=== PATIENT | female | born 1980 | race Caucasian/White ===

== ENCOUNTER 2016-07-03 15:28 | Emergency (ER) | payer OTHER ==
[~2016-07-03] VITALS: Ht 157.5 cm; Wt 56.7 kg
[~2016-07-03 15:28] MED LIST: MOTR200T44 PO; STUACAP PO; TYLE167L PO
[2016-07-03] MEDS ORDERED: ASPIRIN 81 MG CHEW TABLET PO ONE (16:15)
--- NOTE | 2016-07-03 16:37 | REP ---
Chest two views HISTORY: Chest pain Comparison: 10/30/2011 The lungs are clear. The heart is normal in size. The pulmonary vasculature is normal in appearance. The bony structure is intact. IMPRESSION: No acute disease. Signed by Heath Morris MD 07/03/2016 04:29 P
[2016-07-03 16:57] LABS: BASO % 0.6 % (0.0-1.0); EOS # 0.2 K/mm3 (0.0-0.50); EOS % 3.1 % (0.0-3.0); LARGE UNSTAINED CELL # 0.2 K/mm3 (0.0-0.4); LARGE UNSTAINED CELL % 2.2 % (0.0-4.0); LYMPH # 2.2 K/mm3 (1.5-4.5); LYMPH % 27.5 % (24.0-44.0); MEAN CORPUSCULAR HEMOGLOBIN 32.9 pg (27.0-33.0); MONO # 0.4 K/mm3 (0.0-0.8); MONO % 4.7 % (0.0-5.0); NEUTROPHILS # 4.9 K/mm3 (1.8-7.7); NEUTROPHILS % 61.9 % (36.0-66.0); PLATELET COUNT, AUTOMATED 354 k/mm3 (150-450); RED CELL DISTRIBUTION WIDTH 11.6 % (11.5-14.5); WHITE BLOOD COUNT 7.8 K/mm3 (4.0-10.0)
[2016-07-03 17:05] LABS: INR 0.87
[2016-07-03 17:16] LABS: ALBUMIN 4.3 GM/DL (3.2-5.2); ALBUMIN/GLOBULIN RATIO 1.19 (1.00-1.93); ALKALINE PHOSPHATASE 52 U/L (45-117); ALT/SGPT 19 U/L (12-78); ANION GAP 6 MEQ/L (8-16); AST/SGOT 14 U/L (15-37); BILIRUBIN,DIRECT < 0.1 MG/DL (0.0-0.2); BILIRUBIN,TOTAL 0.3 MG/DL (0.2-1.0); BLOOD UREA NITROGEN 13 MG/DL (7-18); CALCIUM LEVEL 8.8 MG/DL (8.5-10.1); CARBON DIOXIDE LEVEL 27 MEQ/L (21-32); CHLORIDE LEVEL 105 MEQ/L (98-107); CREATININE FOR GFR 0.67 MG/DL (0.55-1.02); GLOMERULAR FILTRATION RATE > 60.0 (>60); GLUCOSE, FASTING 84 MG/DL (70-105); POTASSIUM SERUM 4.2 MEQ/L (3.5-5.1); SODIUM LEVEL 138 MEQ/L (136-145); TOTAL PROTEIN 7.9 GM/DL (6.4-8.2)
[2016-07-03 17:42] VITALS: BP 132/75
--- NOTE | 2016-07-04 08:25 | ECGEPIP ---
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
== END 2016-07-03 17:50 | disposition home or self-care (01) ==
LOC: M ED 17:02
DX: R07.89 Other chest pain (principal); Z87.891 Personal history of nicotine dependence

== ENCOUNTER → 2016-09-14 | Outpatient (CLI) | payer OTHER ==
[2016-09-14 18:57] LABS: BASO % 0.6 % (0.0-1.0); EOS # 0.4 K/mm3 (0.0-0.50); EOS % 6.6 % (0.0-3.0); LARGE UNSTAINED CELL # 0.2 K/mm3 (0.0-0.4); LARGE UNSTAINED CELL % 2.9 % (0.0-4.0); LYMPH # 2.1 K/mm3 (1.5-4.5); LYMPH % 33.7 % (24.0-44.0); MEAN CORPUSCULAR HEMOGLOBIN 32.9 pg (27.0-33.0); MEAN CORPUSCULAR VOLUME 99.7 fl (80.0-96.0); MONO # 0.4 K/mm3 (0.0-0.8); MONO % 7.2 % (0.0-5.0); NEUTROPHILS # 2.8 K/mm3 (1.8-7.7); NEUTROPHILS % 48.9 % (36.0-66.0); PLATELET COUNT, AUTOMATED 317 k/mm3 (150-450); WHITE BLOOD COUNT 5.8 K/mm3 (4.0-10.0)
[2016-09-14 19:06] LABS: ALBUMIN 4.1 GM/DL (3.2-5.2); ALBUMIN/GLOBULIN RATIO 1.11 (1.00-1.93); ALKALINE PHOSPHATASE 51 U/L (45-117); ALT/SGPT 23 U/L (12-78); ANION GAP 8 MEQ/L (8-16); AST/SGOT 13 U/L (15-37); BILIRUBIN,TOTAL 0.4 MG/DL (0.2-1.0); BLOOD UREA NITROGEN 11 MG/DL (7-18); CALCIUM LEVEL 9.5 MG/DL (8.5-10.1); CARBON DIOXIDE LEVEL 26 MEQ/L (21-32); CHLORIDE LEVEL 105 MEQ/L (98-107); CREATININE FOR GFR 0.79 MG/DL (0.55-1.02); GLOMERULAR FILTRATION RATE > 60.0 (>60); GLUCOSE, FASTING 91 MG/DL (70-105); POTASSIUM SERUM 4.4 MEQ/L (3.5-5.1); SODIUM LEVEL 139 MEQ/L (136-145); TOTAL PROTEIN 7.8 GM/DL (6.4-8.2)
== END ==
LOC: M SMT 11:23
PROVIDERS: ATTEND Physician Assistant Medical
DX: K62.5 Hemorrhage of anus and rectum (principal)

== ENCOUNTER → 2017-08-22 | Outpatient (REF) | payer OTHER ==
[2017-08-22 17:43] LABS: HEMATOCRIT 34.2 % (36.0-47.0); HEMOGLOBIN 11.3 g/dl (12.0-15.5); MEAN CORPUSCULAR HEMOGLOBIN 31.8 pg (27.0-33.0); MEAN CORPUSCULAR VOLUME 96.3 fl (80.0-96.0); PLATELET COUNT, AUTOMATED 311 10^3/uL (150-450); RED BLOOD COUNT 3.55 10^6/uL (4.00-5.40); RED CELL DISTRIBUTION WIDTH 11.9 % (11.5-14.5); WHITE BLOOD COUNT 6.7 10^3/uL (4.0-10.0)
[2017-08-22 18:19] LABS: RUBELLA IgG QUALITATIVE IMMUNE (IMMUNE)
[2017-08-22 18:20] LABS: HEPATITIS B SURFACE ANTIGEN NEGATIVE (NEGATIVE)
[2017-08-22 18:47] LABS: HEPATITIS C VIRUS ABY INDEX 0.1 INDEX (<0.8)
[2017-08-22 18:48] LABS: HIV 1&2 SCREEN CENTAUR NEGATIVE (NEGATIVE)
[2017-08-22 21:46] LABS: HCG, SERUM QUANTITATIVE 28267 MIU/ML
== END ==
LOC: M LAB REF 16:46
DX: O36.80X0 Pregnancy with inconclusive fetal viability, not applicable or unspecified (principal)

== ENCOUNTER → 2017-08-30 | Outpatient (REF) | payer OTHER | LOC: M LAB REF 12:27 | DX: J02.9 Acute pharyngitis, unspecified (principal) ==

== ENCOUNTER → 2017-11-29 | Outpatient (REF) | payer OTHER | LOC: M LAB REF 09:45 | DX: J02.9 Acute pharyngitis, unspecified (principal) ==

== ENCOUNTER → 2018-01-23 | Outpatient (CLI) | payer OTHER ==
[2018-01-23 11:02] LABS: HEMATOCRIT 29.2 % (36.0-47.0); HEMOGLOBIN 9.5 g/dl (12.0-15.5); MEAN CORPUSCULAR HEMOGLOBIN 32.5 pg (27.0-33.0); MEAN CORPUSCULAR HGB CONC 32.5 g/dl (32.0-36.5); PLATELET COUNT, AUTOMATED 273 10^3/uL (150-450); RED BLOOD COUNT 2.92 10^6/uL (4.00-5.40); RED CELL DISTRIBUTION WIDTH 12.7 % (11.5-14.5); WHITE BLOOD COUNT 11.4 10^3/uL (4.0-10.0)
[2018-01-23 11:32] LABS: GLUCOSE CHALLENGE TEST 1 HOUR 143 MG/DL (LESS THAN 140)
== END ==
LOC: M LAB 09:29
DX: O09.212 Supervision of pregnancy with history of pre-term labor, second trimester (principal); Z3A.00 Weeks of gestation of pregnancy not specified
CPT/HCPCS: 82950

== ENCOUNTER → 2018-01-30 | Outpatient (CLI) | payer OTHER ==
[2018-01-30 08:00] LABS: GLUCOSE, FASTING 85 MG/DL (LESS THAN 95)
[2018-01-30 08:53] LABS: 1 HR GLUCOSE 110 MG/DL (LESS THAN 180)
[2018-01-30 11:03] LABS: 2 HR GLUCOSE 88 MG/DL (LESS THAN 155)
[2018-01-30 11:04] LABS: 3 HR GLUCOSE 55 MG/DL (LESS THAN 140)
== END ==
LOC: M LAB 06:58
DX: O99.89 Other specified diseases and conditions complicating pregnancy, childbirth and the puerperium (principal); R73.02 Impaired glucose tolerance (oral); Z3A.29 29 weeks gestation of pregnancy
CPT/HCPCS: 82951

== ENCOUNTER → 2018-03-13 | Outpatient (REF) | payer OTHER | LOC: M LAB REF 17:18 | PROVIDERS: ATTEND Obstetrics & Gynecology | DX: O09.213 Supervision of pregnancy with history of pre-term labor, third trimester (principal) ==

== ENCOUNTER 2018-04-05 14:51 | Inpatient (IN) | payer OTHER ==
[~2018-04-05] VITALS: Ht 5.1 cm; Wt 75.7 kg
[2018-04-05] VITALS (8 sets, daily range): BP systolic 104–145; BP diastolic 56–76
[2018-04-05] MEDS ORDERED: TUMS500C PO (15:10)
[2018-04-05] MEDS ORDERED: PREN1TAB11 PO (15:10)
[2018-04-05] MEDS ORDERED: LACTATED RINGER'S 1000 ML IV STA (15:36)
[2018-04-05 16:09] LABS: HEMATOCRIT 34.3 % (36.0-47.0); HEMOGLOBIN 11.3 g/dl (12.0-15.5); MEAN CORPUSCULAR HEMOGLOBIN 32.4 pg (27.0-33.0); MEAN CORPUSCULAR HGB CONC 32.9 g/dl (32.0-36.5); MEAN CORPUSCULAR VOLUME 98.3 fl (80.0-96.0); PLATELET COUNT, AUTOMATED 278 10^3/uL (150-450); RED BLOOD COUNT 3.49 10^6/uL (4.00-5.40)
[2018-04-05] MEDS ORDERED: LR 1,000 ML IV SCH (16:30)
[2018-04-05] MEDS ORDERED: OXYTOCIN 30 UNITS IN 0.9% NaCl 500ML IV BAG (J2590) As Ordered ONE (17:04)
[2018-04-05] MEDS ORDERED: OXYTOCIN DRIP 30 UNITS in APPROPRIATE DILUENT 1 EA IV SCH ×2 (17:15→18:26)
[2018-04-05] MEDS ORDERED: FENTANYL/ROPIVACAINE/NACL BAG 100 ML EPIDURAL SCH (18:00)
[2018-04-05] MEDS ORDERED: REFRIGERATOR IV KEYS XX PRN (18:00)
[2018-04-05] MEDS ORDERED: ACETAMINOPHEN 500 MG TAB PO PRN (18:30)
[2018-04-05] MEDS ORDERED: DOCUSATE SODIUM 100 MG CAP PO PRN (18:30)
[2018-04-05] MEDS ORDERED: METHYLERGONOVINE MALEATE 0.2 MG TAB PO PRN (18:30)
[2018-04-05] MEDS ORDERED: DIBUCAINE 1% OINTMENT 30GM TOP PRN (18:30)
[2018-04-05] MEDS ORDERED: MEASLES,MUMPS,RUBELLA VACCINE INJ (MMR-II) (90707) SC SCH (18:30)
[2018-04-05] MEDS ORDERED: RHOGAM 300 MCG (1500 IU) INJ (J2790) IM SCH (18:30)
--- NOTE | 2018-04-05 18:38 | DNPDOC ---
[facility] Delivery Note Delivery Note DATE OF DELIVERY: 04/05/18 PREDELIVERY DIAGNOSIS: 38+6/7 weeks' gestation and labor. POST DELIVERY DIAGNOSIS: Delivered. PROCEDURE: Spontaneous vaginal delivery. PROVIDER: Christina Arndt CNM ANESTHESIA: None. ESTIMATED BLOOD LOSS: 100 mL. FINDINGS: 7 pound 0 ounce, 3170gm male , Score 9/9, no nuchal cord. DELIVERY SUMMARY: Patient is a 38-year-old 3 now para 2-1-0-3 patient of [facility] who was admitted to labor and delivery for active labor. AROM clear fluid performed by Dr Arriaga @ 1659. She progressed rapidly. FD with spontaneous be aring down efforts @ 1810. I was requested to attend the delivery. Viable male child delivered MARLENI compound with anterior Left arm @ 1813. Spontaneous respirations, transitioned on maternal abdomen. Venous cord gas obtained, results pending. Cord doubly clamped and cut by FOB under my direction once pulsations ceased. Apgars 9/9. Placenta hearn, intact with 3v cord @ 1819. Fundus firmed with massage and IV pitocin bolus. EBL 100ml. Cervix vagina and perineum inspected, noted to be intact. Sponge, sharp and instrument count correct. Dr Arriaga aware of pt status. Christina Arndt CNM Apr 05, 2018 18:38
[2018-04-05 18:40] LABS: CORD GAS ABE V -1.2; CORD GAS HCO3 V 19.8 MEQ/L; CORD GAS PCO2 V 25.4 mmHg; CORD GAS PH V 7.51 UNITS; CORD GAS PO2 V 43.5 mmHg; CORD GAS SBC V 23.3 MEQ/L; CORD GAS TCO2 V 20.6 MEQ/L
--- NOTE | 2018-04-05 18:41 | HPE ---
DATE OF ADMISSION: 04/05/2018 Tess is a 38-year-old female, 3, para 1-1-0-2 with an estimated date of confinement (EDC) of 04/13/2018, estimated gestational age (EGA) 38-6/7 weeks gestation who had presented to the office with complaint of pelvic pressure or contractions. Upon evaluation she was found to be 4 cm and 70% effaced, fetus at -2 station. She was then sent home to monitor labor. She called back with increased contractions and worsening pressure. Upon evaluation in labor and delivery, she was found to be 4-5 cm dilated, 80% effaced. At this point, a decision was made for admission. Her record reviewed, which was essentially unremarkable. She had her first delivery at 33 weeks and a full-term live at 39 weeks. LABORATORY: Blood type is O positive, rubella immune, hepatitis negative, HIV negative, GC/ chlamydia negative. One-hour sugar testing was within normal limits. GBS was negative. PAST MEDICAL HISTORY: Denies. PAST SURGICAL HISTORY: 1. Laparoscopy. 2. Hawks tooth extraction. SOCIAL HISTORY: She is . Denies any alcohol or drug use. REVIEW OF SYSTEMS: Unremarkable. FAMILY HISTORY: Significant for diabetes, heart disease, and bladder cancer. MEDICATIONS: vitamin ALLERGIES: No known drug allergy. PHYSICAL EXAMINATION: Normal-appearing female in no acute distress. Abdomen: Soft, nontender, nondistended. Extremities: No clubbing, cyanosis or edema. Vaginal exam: 4-5 cm dilated, 80% effaced, fetus at -2 station, vertex position. Tracing reviewed: Category 1 tracing. ASSESSMENT: Intrauterine at 38-6/7 weeks gestation in labor. PLAN: Admit to labor and delivery. Routine labs sent. Pain management discussed. The patient opted for an epidural. Will continue to monitor. Anticipate delivery.
[2018-04-05] MEDS: IBUPROFEN 800 MG TAB PO PRN (18:42)
[2018-04-06] MEDS: IBUPROFEN 800 MG TAB PO PRN ×2 (03:18→19:25)
[2018-04-06 06:11] VITALS: BP 103/51
[2018-04-06] MEDS: PRENATAL VITAMINS CHEWABLE TABLET PO SCH (07:46)
[2018-04-06 18:00] VITALS: BP 116/63
[2018-04-07 05:51] VITALS: BP 116/59
[2018-04-07] MEDS: PRENATAL VITAMINS CHEWABLE TABLET PO SCH (10:17)
[2018-04-07] MEDS ORDERED: MAPA500T2 PO (10:18)
[2018-04-07] MEDS ORDERED: IBUP-1114 PO (10:20)
[2018-04-07] MEDS ORDERED: COLA100C5 PO (10:21)
[2018-04-07] MEDS: IBUPROFEN 800 MG TAB PO PRN (10:22)
== END 2018-04-07 12:45 | disposition home or self-care (01) | DRG 807 ==
LOC: M LDI 14:51 → M OBS 20:39
PROVIDERS: ADMIT Obstetrics & Gynecology; ATTEND Obstetrics & Gynecology
PROC: 10E0XZZ Delivery of Products of Conception, External Approach (ICD-10-PCS; principal; 2018-04-05)
PROC: 10907ZC Drainage of Amniotic Fluid, Therapeutic from Products of Conception, Via Natural or Artificial Opening (ICD-10-PCS; 2018-04-05)
DX: O32.6XX0 Maternal care for compound presentation, not applicable or unspecified (principal); Z37.0 Single live birth; Z3A.38 38 weeks gestation of pregnancy; O09.523 Supervision of elderly multigravida, third trimester

== ENCOUNTER → 2018-09-16 | Outpatient (CLI) | payer OTHER ==
[~2018-09-16] MED LIST changes: +COLA100C5 PO; +IBUP-1114 PO; +MAPA500T2 PO; +PREN1TAB11 PO; +TUMS500C PO
--- NOTE | 2018-09-16 11:48 | REP ---
Right ankle four views: There is soft tissue edema laterally. No fracture is identified. No dislocation. Mineralization joint spaces are unremarkable. There are no calcifications or foreign bodies. Impression: Soft tissue edema laterally. No fracture or dislocation. Electronically Signed by Sandeep Larios MD 09/16/2018 11:39 A
== END ==
LOC: M WUC 10:03
PROVIDERS: ATTEND Physician Assistant
DX: M70.871 Other soft tissue disorders related to use, overuse and pressure, right ankle and foot (principal); M25.571 Pain in right ankle and joints of right foot

== ENCOUNTER → 2018-11-13 | Outpatient (REF) | payer OTHER | LOC: M LAB REF 16:52 | PROVIDERS: ATTEND Family Medicine | DX: N39.46 Mixed incontinence (principal) ==

== ENCOUNTER → 2019-04-23 | Outpatient (REF) | payer OTHER | LOC: M LAB REF 12:34 | PROVIDERS: ATTEND Physician Assistant | DX: J02.9 Acute pharyngitis, unspecified (principal) ==

== ENCOUNTER → 2019-08-14 | Outpatient (CLI) | payer OTHER ==
[2019-08-14 15:55] LABS: BASO % 0.5 % (0.0-1.0); EOS # 0.3 10^3/uL (0.0-0.5); EOS % 4.4 % (0.0-3.0); HEMATOCRIT 38.6 % (36.0-47.0); HEMOGLOBIN 12.9 g/dl (12.0-15.5); LYMPH # 1.9 10^3/uL (1.5-5.0); LYMPH % 33.5 % (24.0-44.0); MEAN CORPUSCULAR HEMOGLOBIN 33.1 pg (27.0-33.0); MEAN CORPUSCULAR HGB CONC 33.4 g/dl (32.0-36.5); MONO # 0.3 10^3/uL (0.0-0.8); MONO % 5.3 % (0.0-5.0); NEUTROPHILS # 3.2 10^3/uL (1.5-8.5); NEUTROPHILS % 56.1 % (36.0-66.0); PLATELET COUNT, AUTOMATED 323 10^3/uL (150-450); WHITE BLOOD COUNT 5.6 10^3/uL (4.0-10.0)
[2019-08-14 16:32] LABS: ALT/SGPT 23 U/L (12-78); BILIRUBIN,TOTAL 0.4 MG/DL (0.2-1.0); BLOOD UREA NITROGEN 13 MG/DL (7-18); CALCIUM LEVEL 9.2 MG/DL (8.5-10.1); CARBON DIOXIDE LEVEL 24 MEQ/L (21-32); CHLORIDE LEVEL 107 MEQ/L (98-107); CREATININE FOR GFR 0.94 MG/DL (0.55-1.30); FREE T4 0.92 NG/DL (0.76-1.46); GLOMERULAR FILTRATION RATE > 60.0 (>58); GLUCOSE, FASTING 91 MG/DL (70-100); POTASSIUM SERUM 4.1 MEQ/L (3.5-5.1); SODIUM LEVEL 140 MEQ/L (136-145); TOTAL PROTEIN 7.7 GM/DL (6.4-8.2)
== END ==
LOC: M WUC 14:03
PROVIDERS: ATTEND Family Medicine
DX: Z13.29 Encounter for screening for other suspected endocrine disorder (principal); Z13.0 Encounter for screening for diseases of the blood and blood-forming organs and certain disorders involving the immune mechanism; F41.1 Generalized anxiety disorder

== ENCOUNTER → 2019-10-03 | Outpatient (CLI) | payer OTHER ==
--- NOTE | 2019-10-26 13:12 | REPMRS ---
Patient History The patient states she has not had a clinical breast exam in over a year. Patient had first child at age 33. No known family history of cancer. No Hormone Replacement Therapy Digital Woman Screen Mammo: October 03, 2019 - Exam #: [id number] Bilateral CC and MLO view(s) were taken. Technologist: Ofelia Duarte, Technologist No prior studies available for comparison. FINDINGS: The breast tissue is heterogeneously dense. This may lower the sensitivity of mammography. There is no evidence of dominant mass, architectural distortion, or grouped microcalcification typical of malignancy. 3-D tomosynthesis shows no additional findings. Report was delayed due to a protracted network disruption experienced by this facility. Assessment: BI-RADS/ACR category 1 mammogram. Negative Mammogram. Recommendation Routine screening mammogram of both breasts in 1 year (for women over age 40). This patient's Lifetime Breast Cancer RIsk is estimated at 15.0 %. This mammogram was interpreted with the aid of an FDA-approved computer-aided dectection system. Electronically Signed By: Bruce Guzmán MD 10/26/19 [id number]
== END ==
LOC: M WHC 10:49
PROVIDERS: ATTEND Physician Assistant
DX: Z12.31 Encounter for screening mammogram for malignant neoplasm of breast (principal)

== ENCOUNTER → 2019-12-19 | Outpatient (REF) | payer OTHER ==
[2019-12-19 13:00] LABS: BASO # 0.1 10^3/uL (0.0-0.2); BASO % 0.7 % (0.0-1.0); EOS # 0.9 10^3/uL (0.0-0.5); EOS % 12.1 % (0.0-3.0); HEMATOCRIT 39.2 % (36.0-47.0); HEMOGLOBIN 12.8 g/dl (12.0-15.5); LYMPH # 2.1 10^3/uL (1.5-5.0); LYMPH % 27.8 % (24.0-44.0); MEAN CORPUSCULAR HEMOGLOBIN 32.5 pg (27.0-33.0); MEAN CORPUSCULAR HGB CONC 32.7 g/dl (32.0-36.5); MEAN CORPUSCULAR VOLUME 99.5 fl (80.0-96.0); MONO # 0.6 10^3/uL (0.0-0.8); MONO % 7.4 % (0.0-5.0); NEUTROPHILS # 3.9 10^3/uL (1.5-8.5); NEUTROPHILS % 51.7 % (36.0-66.0); PLATELET COUNT, AUTOMATED 295 10^3/uL (150-450); RED BLOOD COUNT 3.94 10^6/uL (4.00-5.40); WHITE BLOOD COUNT 7.5 10^3/uL (4.0-10.0)
[2019-12-19 13:31] LABS: ALBUMIN 4.1 GM/DL (3.2-5.2); ALT/SGPT 19 U/L (12-78); BILIRUBIN,TOTAL 0.5 MG/DL (0.2-1.0); BLOOD UREA NITROGEN 13 MG/DL (7-18); CALCIUM LEVEL 9.3 MG/DL (8.5-10.1); CARBON DIOXIDE LEVEL 25 MEQ/L (21-32); CHLORIDE LEVEL 107 MEQ/L (98-107); CHOLESTEROL LEVEL 185 MG/DL (<200); CHOLESTEROL RISK RATIO 1.968 (<5); CREATININE FOR GFR 0.78 MG/DL (0.55-1.30); FREE T4 0.76 NG/DL (0.76-1.46); GLOMERULAR FILTRATION RATE > 60.0 (>58); GLUCOSE, FASTING 85 MG/DL (70-100); HDL CHOLESTEROL 94 MG/DL (>40); LDL CHOLESTEROL 71 MG/DL (<100); NON-HDL-C 91 MG/DL; POTASSIUM SERUM 4.6 MEQ/L (3.5-5.1); SODIUM LEVEL 137 MEQ/L (136-145); TOTAL PROTEIN 7.6 GM/DL (6.4-8.2); TRIGLYCERIDES LEVEL 99 MG/DL (<150)
== END ==
LOC: M LABDRWAD 12:27
PROVIDERS: ATTEND Family Medicine
DX: Z13.0 Encounter for screening for diseases of the blood and blood-forming organs and certain disorders involving the immune mechanism (principal); Z13.29 Encounter for screening for other suspected endocrine disorder; Z13.220 Encounter for screening for lipoid disorders

== ENCOUNTER → 2020-05-28 | Outpatient (CLI) | payer OTHER | LOC: M LABSMTC 13:21 | PROVIDERS: ATTEND Anesthesiology | DX: Z01.812 Encounter for preprocedural laboratory examination (principal); Z20.822 Contact with and (suspected) exposure to COVID-19 ==

== ENCOUNTER 2020-06-02 11:41 | Day surgery (SDC) | payer OTHER ==
[~2020-06-02] VITALS: Ht 157.5 cm; Wt 63.5 kg
[~2020-06-02 11:41] MED LIST changes: +FLUO10CA16 PO; +LR 1,000 ML IV ONE; +ceFAZolin SOD 2 GM in IV 1 EA IV ONE
[2020-06-02] MEDS ORDERED: BUPIVACAINE HCL 0.5% 10ML VIAL As Ordered ONE (14:15)
[2020-06-02] MEDS ORDERED: LIDOCAINE 1% MDV 20ML VIAL As Ordered ONE (14:15)
[2020-06-02] MEDS ORDERED: dexameTHASONE 4 MG/ML 1ML VIAL (J1100 PER 1MG) As Ordered ONE (14:15)
[2020-06-02] MEDS ORDERED: propofoL 200 MG/20 ML VIAL As Ordered ONE ×2 (14:24→15:39)
[2020-06-02] MEDS ORDERED: KETOROLAC 60MG 2ML VIAL As Ordered ONE (14:24)
[2020-06-02] MEDS ORDERED: fentaNYL 100 MCG/2 ML INJECTION (J3010) As Ordered ONE (14:24)
[2020-06-02] MEDS ORDERED: LIDOCAINE 2% 100MG/5ML SDV (FOR ANES.) As Ordered ONE (14:24)
[2020-06-02] MEDS ORDERED: MIDAZOLAM INJ 2MG/2ML VIAL (J2250 PER 1MG) As Ordered ONE (14:24)
[2020-06-02] MEDS ORDERED: ONDANSETRON 4MG/2ML VIAL As Ordered ONE (14:24)
[2020-06-02] MEDS ORDERED: HYDR-3713 PO (16:09)
[2020-06-02 16:30] VITALS: BP 129/69
[2020-06-02] MEDS ORDERED: ONDANSETRON 4MG/2ML VIAL IV PRN (16:45)
[2020-06-02] MEDS ORDERED: LR 1,000 ML IV SCH (16:45)
[2020-06-02] MEDS ORDERED: PERCOCET 5MG/325MG TAB PO PRN (16:45)
[2020-06-02] MEDS ORDERED: METOCLOPRAMIDE INJ 10MG/2ML VIAL (J2765 PER 1) IV PRN (16:45)
--- NOTE | 2020-06-03 07:55 | RO ---
OPERATIVE NOTE DATE OF OPERATION: 06/02/2020 PREOPERATIVE DIAGNOSIS: Right hallux limitus and right ganglion cyst POSTOPERATIVE DIAGNOSIS: Right hallux limitus and right ganglion cyst PROCEDURE: Right-sided first metatarsophalangeal cheilectomy and ganglion excision. SURGEON: Rishabh Adler DPM PERSONNEL CLERK: None. ANESTHESIA: Monitored anesthesia care, preoperative injection of 16 ml of 1:1 mixture of 1% lidocaine plain, 0.5% Marcaine plain. ESTIMATED BLOOD LOSS: Minimal. MATERIALS: 3-0 and 4-0 Vicryl, 4-0 nylon. INJECTABLES: None. COMPLICATIONS: None. SPECIMEN: Ganglion right foot INDICATIONS: Tess Flores is a 40-year-old female who presents with painful big toe joint. She also notes a cyst near her big toe as well. She presents today for surgical correction. The patient's side and site were identified and marked in the preoperative holding area. Consent was reviewed and obtained. Risks, complications and alternatives to the procedure were explained to the patient in detail and all questions were answered. DESCRIPTION OF PROCEDURE: The patient was brought to the operating room and placed on the operating room table in the supine position. Monitoring anesthesia care was delivered by the anesthesia team. Preop injection of 16 ml of 1:1 mixture of 1% lidocaine plain and 0.5% Marcaine plain were injected into the right foot. The right foot was prepped and draped in normal sterile fashion. Tourniquet was applied to the right ankle, inflated to 215 mmHg. Dorsal incision was made over the first metatarsophalangeal joint and carried through with a #15 blade. Dissection was carried until the joint capsule was identified. A linear capsulotomy was performed exposing the metatarsal head. There were was dorsal prominence on the metatarsal head. This was removed with sagittal saw and smooth with a rasp. Cartilages inspected. There was noted to be a cartilage defect in the central aspect of the metatarsal head and this was drilled with a 4.5 K wire. The cyst was then found in the dorsal lateral base of the hallux extending into the inner space. This was excised including the capsule in total with #15 blade. It was filled with clear gelatinous fluid consistent with a ganglion cyst and was sent for pathology. The site was irrigated with normal saline. Capsulotomy was repair was performed with 3-0 Vicryl, subcutaneous closure with 4-0 Vicryl, skin closure with 4-0 nylon. 1 ml of Decadron was injected, sterile dressing was applied. Tourniquet deflated. The patient was brought to PACU with vital signs stable and neurovascular status intact. She will be weightbearing as tolerated. She will follow up in the office in two days.
== END 2020-06-02 16:50 | disposition home or self-care (01) ==
LOC: M SDC 11:41
PROVIDERS: ATTEND Podiatrist Foot & Ankle Surgery
DX: M20.21 Hallux rigidus, right foot (principal); M67.471 Ganglion, right ankle and foot; Z87.891 Personal history of nicotine dependence
CPT/HCPCS: 28090; 28289; 88300; 88304; J0690; J1100; J1885; J2250; J2405; J3010

== ENCOUNTER → 2021-01-25 | Outpatient (CLI) | payer BC ==
[~2021-01-25] MED LIST changes: +HYDR-3713 PO; -LR 1,000 ML IV ONE; -ceFAZolin SOD 2 GM in IV 1 EA IV ONE
--- NOTE | 2021-01-25 09:27 | REPMRS ---
Patient History The patient states she has not had a clinical breast exam in over a year. Patient had first child at age 33. No known family history of cancer. Took hormonal contraceptives for 15 years. Tomosynthesis is performed. Volpara breast density is b. [facility] lifetime risk of breast cancer 14.9%. Moderna vaccine 06/2020 left arm. 07/2020 left arm. Pt denied . Patient states no breast complaints today. Patient has signed MRS History Sheet. Digital Woman Screen Mammo: January 25, 2021 - Exam #: [id number] Bilateral CC and MLO view(s) were taken. Technologist: RT Francis Prior study comparison: October 03, 2019, bilateral digital woman screen mammo performed at [facility]. FINDINGS: The breast tissue is heterogeneously dense. This may lower the sensitivity of mammography. There has been no change in the appearance of the mammogram from the prior studies. There is a moderate amount of residual fibroglandular tissue which is fairly symmetric. There is no interval development of dominant mass, areas of architectural distortion, or clustered microcalcification typical of malignancy. Assessment: BI-RADS/ACR category 1 mammogram. Negative Mammogram. Recommendation Routine screening mammogram in 1 year (for women over age 40). This mammogram was interpreted with the aid of an FDA-approved computer-aided dectection system. Electronically Signed By: Sandeep Bergman MD 01/25/21 0927
== END ==
LOC: M WHC 07:53
PROVIDERS: ATTEND Family Medicine
DX: Z12.31 Encounter for screening mammogram for malignant neoplasm of breast (principal)

== ENCOUNTER → 2021-10-17 | Outpatient (CLI) | payer BC ==
[~2021-10-17] MED LIST changes: -FLUO10CA16 PO; +FLUO10CA18 PO
== END ==
LOC: M WHC 06:41
PROVIDERS: ATTEND Registered Nurse Emergency
DX: D30.02 Benign neoplasm of left kidney (principal)

== ENCOUNTER → 2022-03-09 | Outpatient (CLI) | payer BC ==
[2022-03-09 14:08] LABS: BASO # 0.1 10^3/uL (0.0-0.2); BASO % 0.5 % (0.0-1.0); EOS # 0.6 10^3/uL (0.0-0.5); EOS % 6.1 % (0.0-3.0); HEMATOCRIT 38.3 % (36.0-47.0); HEMOGLOBIN 12.5 g/dl (12.0-15.5); LYMPH # 2.1 10^3/uL (1.5-5.0); LYMPH % 22.1 % (24.0-44.0); MEAN CORPUSCULAR HEMOGLOBIN 33.1 pg (27.0-33.0); MEAN CORPUSCULAR HGB CONC 32.6 g/dl (32.0-36.5); MEAN CORPUSCULAR VOLUME 101.3 fl (80.0-96.0); MONO # 0.5 10^3/uL (0.0-0.8); MONO % 5.3 % (2.0-8.0); NEUTROPHILS # 6.1 10^3/uL (1.5-8.5); NEUTROPHILS % 65.7 % (36.0-66.0); PLATELET COUNT, AUTOMATED 266 10^3/uL (150-450); RED BLOOD COUNT 3.78 10^6/uL (4.00-5.40); WHITE BLOOD COUNT 9.3 10^3/uL (4.0-10.0)
[2022-03-09 14:40] LABS: ALKALINE PHOSPHATASE 44 U/L (46-116); ALT/SGPT 15 U/L (7.0-40); AST/SGOT 19 U/L (<34); BILIRUBIN,TOTAL 0.4 MG/DL (0.3-1.2); BLOOD UREA NITROGEN 18 MG/DL (9-23); CARBON DIOXIDE LEVEL 23 MMOL/L (20-31); CHLORIDE LEVEL 107 MMOL/L (98-107); CHOLESTEROL LEVEL 189 MG/DL (<200); CHOLESTEROL RISK RATIO 1.98 (<5); CREATININE FOR GFR 0.81 MG/DL (0.55-1.30); GLOMERULAR FILTRATION RATE > 60.0 (>58); GLUCOSE, FASTING 85 MG/DL (60-100); HDL CHOLESTEROL 95.2 MG/DL (>40); LDL CHOLESTEROL 69.4 MG/DL (<100); NON-HDL-C 94 MG/DL; SODIUM LEVEL 141 MMOL/L (136-145); TRIGLYCERIDES LEVEL 122 MG/DL (<150)
[2022-03-09 14:42] LABS: FREE T4 0.89 NG/DL (0.89-1.76); THYROID STIMULATING HORMONE 2.119 uIU/ML (0.55-4.78)
== END ==
LOC: M PLALAB 09:29
PROVIDERS: ATTEND Family Medicine
DX: Z13.0 Encounter for screening for diseases of the blood and blood-forming organs and certain disorders involving the immune mechanism (principal)

== ENCOUNTER → 2022-03-14 | Outpatient (CLI) | payer BC | LOC: M WHC 06:45 | PROVIDERS: ATTEND Family Medicine | DX: Z12.31 Encounter for screening mammogram for malignant neoplasm of breast (principal) ==

== ENCOUNTER → 2022-10-27 | Outpatient (CLI) | payer BC ==
[~2022-10-27] MED LIST changes: +PROHANCE 279.3MG/ML 15ML VIAL ONE
== END ==
LOC: M PLAIMG 10:08
PROVIDERS: ATTEND Family Medicine
DX: R92.8 Other abnormal and inconclusive findings on diagnostic imaging of breast (principal)
CPT/HCPCS: A9576; C8908

== ENCOUNTER → 2023-02-13 | Outpatient (CLI) | payer BC ==
[~2023-02-13] MED LIST changes: -PROHANCE 279.3MG/ML 15ML VIAL ONE
[2023-02-13 10:51] LABS: BASO # 0.1 10^3/uL (0.0-0.2); BASO % 0.9 % (0.0-1.0); EOS # 0.6 10^3/uL (0.0-0.5); EOS % 10.4 % (0.0-3.0); HEMATOCRIT 35.8 % (36.0-47.0); HEMOGLOBIN 11.4 g/dl (12.0-15.5); LYMPH # 2.1 10^3/uL (1.5-5.0); LYMPH % 35.3 % (24.0-44.0); MEAN CORPUSCULAR HEMOGLOBIN 32.5 pg (27.0-33.0); MEAN CORPUSCULAR HGB CONC 31.8 g/dl (32.0-36.5); MONO # 0.5 10^3/uL (0.0-0.8); MONO % 7.8 % (2.0-8.0); NEUTROPHILS # 2.7 10^3/uL (1.5-8.5); NEUTROPHILS % 45.3 % (36.0-66.0); PLATELET COUNT, AUTOMATED 398 10^3/uL (150-450); RED BLOOD COUNT 3.51 10^6/uL (4.00-5.40); WHITE BLOOD COUNT 5.9 10^3/uL (4.0-10.0)
[2023-02-13 11:23] LABS: ALBUMIN 3.7 G/DL (3.2-5.2); ALKALINE PHOSPHATASE 44 U/L (46-116); ALT/SGPT 10 U/L (7.0-40); AST/SGOT 14 U/L (<34); BILIRUBIN,TOTAL 0.7 MG/DL (0.3-1.2); BLOOD UREA NITROGEN 9 MG/DL (9-23); CALCIUM LEVEL 9.3 MG/DL (8.5-10.1); CARBON DIOXIDE LEVEL 25 MMOL/L (20-31); CHLORIDE LEVEL 105 MMOL/L (98-107); CHOLESTEROL LEVEL 175 MG/DL (<200); CHOLESTEROL RISK RATIO 1.64 (<5); CREATININE FOR GFR 0.65 MG/DL (0.55-1.30); FREE T4 0.83 NG/DL (0.89-1.76); GLOMERULAR FILTRATION RATE > 60.0 (>58); GLUCOSE, FASTING 93 MG/DL (60-100); HDL CHOLESTEROL 106.3 MG/DL (>40); LDL CHOLESTEROL 44.7 MG/DL (<100); NON-HDL-C 68.7 MG/DL; POTASSIUM SERUM 3.7 MMOL/L (3.5-5.1); SODIUM LEVEL 138 MMOL/L (136-145); THYROID STIMULATING HORMONE 2.225 uIU/ML (0.55-4.78); TOTAL PROTEIN 6.6 G/DL (5.7-8.2); TRIGLYCERIDES LEVEL 120 MG/DL (<150)
== END ==
LOC: M WUC 08:06
PROVIDERS: ATTEND Family Medicine
DX: Z13.0 Encounter for screening for diseases of the blood and blood-forming organs and certain disorders involving the immune mechanism (principal); Z13.29 Encounter for screening for other suspected endocrine disorder; Z13.220 Encounter for screening for lipoid disorders

== ENCOUNTER → 2023-03-03 | Outpatient (CLI) | payer BC ==
[2023-03-03 12:32] LABS: PERCENT SATURATION 29.1 % (13.2-45.0)
[2023-03-03 12:34] LABS: TOTAL 25(OH) VITAMIN D 37.2 NG/ML (20.0-100.0)
[2023-03-03 12:35] LABS: FERRITIN 30.9 NG/ML (7.3-270.7); FOLATE 21.5 NG/ML (>5.4)
== END ==
LOC: M LAB 10:08
PROVIDERS: ATTEND Family Medicine
DX: Z00.00 Encounter for general adult medical examination without abnormal findings (principal); R53.83 Other fatigue; D64.9 Anemia, unspecified

== ENCOUNTER 2023-05-02 07:16 | Day surgery (SDC) | payer BC ==
[~2023-05-02] VITALS: Ht 157.5 cm; Wt 58.6 kg
[~2023-05-02 07:16] MED LIST changes: +AMPH1CAP16 PO
[2023-05-02] MEDS: NS 1,000 ML IV ONE (07:27)
[2023-05-02] MEDS ORDERED: propofoL 200 MG/20 ML VIAL As Ordered ONE (07:59)
[2023-05-02 08:34] VITALS: BP 133/75; O2SAT 100
== END 2023-05-02 08:36 | disposition home or self-care (01) ==
LOC: M OPP 07:16
PROVIDERS: ATTEND Surgery
DX: Z12.11 Encounter for screening for malignant neoplasm of colon (principal); K64.1 Second degree hemorrhoids; K57.30 Diverticulosis of large intestine without perforation or abscess without bleeding

== ENCOUNTER → 2023-10-22 | Outpatient (REF) | payer BC ==
[~2023-10-22] MED LIST changes: +FLUO-290 PO; -FLUO10CA18 PO
[2023-10-22 13:31] LABS: BASO % 0.5 % (0.0-1.0); EOS # 0.8 10^3/uL (0.0-0.5); EOS % 9.3 % (0.0-3.0); HEMATOCRIT 38.5 % (36.0-47.0); HEMOGLOBIN 12.5 g/dl (12.0-15.5); LYMPH # 2.9 10^3/uL (1.5-5.0); LYMPH % 34.7 % (24.0-44.0); MEAN CORPUSCULAR HEMOGLOBIN 32.4 pg (27.0-33.0); MEAN CORPUSCULAR HGB CONC 32.5 g/dl (32.0-36.5); MEAN CORPUSCULAR VOLUME 99.7 fl (80.0-96.0); MONO # 0.6 10^3/uL (0.0-0.8); NEUTROPHILS # 4.1 10^3/uL (1.5-8.5); NEUTROPHILS % 48.3 % (36.0-66.0); PLATELET COUNT, AUTOMATED 302 10^3/uL (150-450); RED BLOOD COUNT 3.86 10^6/uL (4.00-5.40); WHITE BLOOD COUNT 8.4 10^3/uL (4.0-10.0)
[2023-10-22 13:34] LABS: ALBUMIN 3.7 G/DL (3.2-5.2); ALKALINE PHOSPHATASE 39 U/L (46-116); ALT/SGPT 13 U/L (7.0-40); AST/SGOT 15 U/L (<34); BILIRUBIN,TOTAL 0.7 MG/DL (0.3-1.2); BLOOD UREA NITROGEN 8 MG/DL (9-23); CALCIUM LEVEL 8.9 MG/DL (8.5-10.1); CARBON DIOXIDE LEVEL 24 MMOL/L (20-31); CHLORIDE LEVEL 108 MMOL/L (98-107); CHOLESTEROL LEVEL 213 MG/DL (<200); CHOLESTEROL RISK RATIO 2.13 (<5); CREATININE FOR GFR 0.62 MG/DL (0.55-1.30); FREE T4 0.89 NG/DL (0.89-1.76); GLOMERULAR FILTRATION RATE > 60.0 (>58); GLUCOSE, FASTING 98 MG/DL (60-100); HDL CHOLESTEROL 99.6 MG/DL (>40); LDL CHOLESTEROL 81.6 MG/DL (<100); NON-HDL-C 113.4 MG/DL; POTASSIUM SERUM 4.2 MMOL/L (3.5-5.1); SODIUM LEVEL 138 MMOL/L (136-145); THYROID STIMULATING HORMONE 2.892 uIU/ML (0.55-4.78); TRIGLYCERIDES LEVEL 159 MG/DL (<150)
== END ==
LOC: M LABDRWAD 12:49
PROVIDERS: ATTEND Family Medicine
DX: Z13.29 Encounter for screening for other suspected endocrine disorder (principal); Z13.220 Encounter for screening for lipoid disorders; Z13.0 Encounter for screening for diseases of the blood and blood-forming organs and certain disorders involving the immune mechanism

== ENCOUNTER → 2024-02-06 | Outpatient (CLI) | payer BC | LOC: M WHC 09:02 | PROVIDERS: ATTEND Family Medicine | DX: Z12.31 Encounter for screening mammogram for malignant neoplasm of breast (principal); R92.323 Mammographic fibroglandular density, bilateral breasts; Z80.3 Family history of malignant neoplasm of breast ==

== ENCOUNTER → 2025-03-02 | Outpatient (CLI) | payer OTHER | LOC: M WHC 10:44 | PROVIDERS: ATTEND Family Medicine | DX: Z12.31 Encounter for screening mammogram for malignant neoplasm of breast (principal) ==